=== PATIENT | male | born 1985 | race Two or more races ===

== ENCOUNTER → 2025-05-08 | Outpatient (CLI) | payer OTHER ==
[2025-05-08 09:21] LABS: PLATELET COUNT, AUTOMATED 155 10^3/uL (150-450)
[2025-05-08 09:33] LABS: INR 0.9
== END ==
LOC: M LAB 08:47
PROVIDERS: ATTEND Orthopaedic Surgery
DX: Z01.818 Encounter for other preprocedural examination (principal)

== ENCOUNTER → 2025-09-09 | Outpatient (CLI) | payer OTHER ==
[~2025-09-09] MED LIST: PROHANCE 279.3MG/ML 15ML VIAL As Ordered ONE; PROHANCE 279.3MG/ML 5ML VIAL As Ordered ONE
== END ==
LOC: M RAD 07:32
PROVIDERS: ATTEND Otolaryngology
DX: H90.72 Mixed conductive and sensorineural hearing loss, unilateral, left ear, with unrestricted hearing on the contralateral side (principal); R90.89 Other abnormal findings on diagnostic imaging of central nervous system; J34.89 Other specified disorders of nose and nasal sinuses
CPT/HCPCS: 70553; A9579

== ENCOUNTER 2025-10-21 11:14 | Emergency (ER) | payer OTHER ==
[~2025-10-21] VITALS: Ht 165.1 cm; Wt 88.7 kg
[2025-10-21] MEDS ORDERED: APAP325T4 PO (11:22)
[2025-10-21] MEDS: LIDOCAINE VISCOUS 2% SOLN 15 ML UDC SSP ONE (12:35)
[2025-10-21] MEDS ORDERED: MAGICMW SSP (12:37)
[2025-10-21 12:41] VITALS: BP 149/94; TEMP 98.5; O2SAT 98
== END 2025-10-21 12:47 | disposition home or self-care (01) ==
LOC: M ED 11:14
DX: J02.9 Acute pharyngitis, unspecified (principal); Z79.1 Long term (current) use of non-steroidal anti-inflammatories (NSAID)